=== PATIENT | female | born 1995 ===

== ENCOUNTER 2022-09-16 08:00 | Outpatient (CLI) | payer OTHER ==
[2022-09-16 16:14] LABS: BILIRUBIN,URINE NEGATIVE (NEGATIVE); GLUCOSE, URINE (UA) NEGATIVE (NEGATIVE); KETONES,URINE (UA) NEGATIVE (NEGATIVE); LEUKOCYTE ESTERASE, URINE MODERATE (NEGATIVE); NITRITE,URINE NEGATIVE (NEGATIVE); OCCULT BLOOD,URINE NEGATIVE (NEGATIVE); PH,URINE 6.5 PH (5.0-7.5); PROTEIN,URINE NEGATIVE (NEGATIVE); UROBILINOGEN,URINE 0.2 (NORMAL) E.U./dL (NORMAL)
[2022-09-16 16:15] LABS: CLARITY,URINE HAZY (CLEAR)
[2022-09-16 16:23] LABS: BACTERIA,URINE Few /HPF (None Seen); RBC,URINE 0-5 /HPF (0-5); SQUAMOUS EPITHELIAL CELL,UR MANY Squamous (<= Few); WBC,URINE >25 /HPF (0-5)
== END 2022-09-16 23:59 | disposition home or self-care (01) ==
LOC: LAB.WC 08:00
PROVIDERS: ATTEND Obstetrics & Gynecology
DX: Z34.90 Encounter for supervision of normal pregnancy, unspecified, unspecified trimester (principal)
CPT/HCPCS: 81001; 87086

== ENCOUNTER 2022-09-28 16:44 | Outpatient (CLI) | payer OTHER ==
--- NOTE | 2022-09-29 10:06 | Ultrasound Report ---
PROCEDURE: OB First Trimester w/TV INDICATIONS: POSITIVE TEST OUTSIDE/PRIOR DATING DATA: Last menstrual period (LMP): 08/04/2022. LMP-based estimated date of delivery (YFN): 05/11/2023. First dating scan (date and location): 09/28/2022. Estimated date of delivery (YFN) from first dating scan: 05/09/2023. TECHNIQUE: Real-time scanning was performed of the fetus and maternal pelvic organs, with image documentation. Endovaginal scanning was also performed to better visualize the fetus and maternal ovaries. COMPARISON: None. FINDINGS: Intrauterine gestational sac present. Embryo: pole is seen with crown-rump length of approximately 1.7 cm, giving an estimated gesta tional age of 8 weeks 1 day. Heart rate: 169 bpm. Other: No perigestational fluid collection. Measurement variability in dating: +/- 4 weeks by LMP, +/- 7 days by mean sac diameter (use before 6 weeks gestation if crown-rump length not able to be measured), +/- 5 days by crown-rump length (6-12 weeks gestation). Maternal organs: A left corpus luteum cyst is present. IMPRESSION: Single live intrauterine with size concordant with clinical dates. Reviewed by: Brendan Call MD on 09/29/2022 10:05 AM PDT Approved by: Brendan Call MD on 09/29/2022 10:05 AM PDT Station ID: [id number]
== END 2022-09-28 16:45 | disposition home or self-care (01) ==
LOC: DI 16:44
PROVIDERS: ATTEND Obstetrics & Gynecology
DX: Z34.91 Encounter for supervision of normal pregnancy, unspecified, first trimester (principal)